=== PATIENT | female | born 1965 | race Caucasian/White ===

== ENCOUNTER 2024-06-15 13:51 | Emergency (ER) | payer BC, SELFPAY ==
[2024-06-15 13:52] VITALS: BP 146/98
--- NOTE | 2024-06-15 14:46 | ED.GENMED ---
History of Present Illness
General
Chief Complaint: Musculo-Skeletal Complaint
Time Seen by Provider: 06/15/24 14:25
History of Present Illness
History of Present Illness:
59-year-old female presents to the emergency department for evaluation of left shoulder pain after falling off her horse. She was wearing a helmet and reports only a mild blow to the head. Denies loss of consciousness or headaches at this time.
Has obvious bruising and swelling to the anterior superior aspect of the shoulder. Denies back pain or chest discomfort
Review of Systems
Review of Systems
Allergies reviewed?: Yes
All Other Systems: ROS reviewed and negative except as documented in HPI and ROS
Phy Exam
Physical Exam
Physical Exam:
GEN: Well appearing, NAD, WDWN
HEENT: Oral mucosa moist, no scleral icterus
Cardiac: Regular rate and rhythm, no murmurs
Lung: No respiratory distress, no tachypnea, lungs clear to auscultation bilaterally
MSK: Bruising and swelling to the anterior and superior aspect left shoulder overlying the distal clavicle, no glenohumeral dislocation
Skin: Good color, no pallor or jaundice, no rashes
Neuro: AO x3, moves all extremities freely
Psych: Calm, cooperative
Course
Orders/Labs/Results
Orders:
Orders
06/15/24 14:02
Shoulder, Left, Trauma CR [CR Shoulder, Trauma - Left] Urgent
Comment:
Reason For Exam: severe pain, pt fell off horse onto shoulder
06/15/24 14:48
Sling Left-Treatment ONCE
Acetaminophen [Tylenol] 1,000 mg PO NOW STA
Vital Signs
Initial and Last Documented VS:
Initial Vital Signs
Temp Pulse Resp BP Pulse Ox
98.2 F 96 16 146/98 98
06/15/24 13:52 06/15/24 13:52 06/15/24 13:52 06/15/24 13:52 06/15/24 13:52
Last Documented Vital Signs
Temp Pulse Resp BP Pulse Ox
98.2 F 96 16 146/98 98
06/15/24 13:52 06/15/24 13:52 06/15/24 13:52 06/15/24 13:52 06/15/24 13:52
MDM/Problems Addressed
MDM/Problems Addressed:
X-ray reveals a displaced distal clavicle fracture. No evidence for pneumothorax clinically or radiographically. Patient placed in sling, discussed supportive care and outpatient orthopedic follow-up
*Critical Care Note
Total Time (30-74mins, 75-104mins- exclusive of procedures): Not Applicable
ED Attending Note
-
Portions of this chart may have been created with voice recognition software.� Occasional wrong word or��sound alike� substitutions may have occurred due to the inherent limitations of voice recognition software.
Discharge Plan
Departure
Patient Disposition: Home (Routine Discharge)
Date of Disposition: 06/15/24
Time of Disposition: 14:46
Patient with high blood pressure during this ER visit?: No
Discharge Problem:
Closed fracture of left clavicle
Instructions: Clavicle fracture
Referrals:
Pauly Real I., DO [Active] -
Nanci Campoverde MD [Family Provider] -
Activity Restrictions/Additional Instructions:
Wear the sling at all times until orthopedic follow-up however please at least 1 open a total of the shoulder and elbow to stretch. Consider bending forward and pendulum swinging the left arm to reduce shoulder stiffness. Follow-up with
orthopedics tomorrow. Take Tylenol ibuprofen every 6-8 hours as needed for pain and ice the shoulder often
Interventions
Interventions:
*Risk Screen - Suicide Last Done: 06/15/24 14:01
*General Assessment Last Done: 06/15/24 14:01
*Neglect/Abuse Screening Last Done: 06/15/24 14:01
ED- Fall Risk Assessment Last Done: 06/15/24 15:32
*ED COVID-19 Vaccine History Last Done: 06/15/24 14:01
*Nursing Disposition Last Done: 06/15/24 15:32
ED-Musculoskeletal Assessment Last Done: 06/15/24 14:08
Discharge Date and Time
Discharge Date/Time: 06/15/24 15:33
Print Language: [place]
[2024-06-15] MEDS: TYLENOL 1000 MG PO (14:54)
== END 2024-06-15 15:33 | disposition home or self-care (01) ==
LOC: EMR 13:51
PROVIDERS: EMERGENCY PHYSICIAN Emergency Medicine; FAMILY PHYSICIAN Family Medicine
DX: S42.032A Displaced fracture of lateral end of left clavicle, initial encounter for closed fracture (principal); V80.010A Animal-rider injured by fall from or being thrown from horse in noncollision accident, initial encounter; Y93.52 Activity, horseback riding
CPT/HCPCS: 99283; 73030

== ENCOUNTER 2024-06-20 06:21 | Day surgery (SDC) | payer BC, SELFPAY ==
[2024-06-20] VITALS (9 sets, daily range): BP systolic 120–147; BP diastolic 58–88; BMI 18.3
[2024-06-20] MEDS: CELEBREX 200 MG PO (11:13)
[2024-06-20] MEDS: NORMOSOL-R 1000 IV (11:14)
[2024-06-20] MEDS: ZOFRAN 4 MG IV (14:15)
[2024-06-20] MEDS: DILAUDID 0.25 MG IV (14:39)
[2024-06-20] MEDS: TYLENOL 650 MG PO (15:42)
== END 2024-06-20 16:20 | disposition home or self-care (01) ==
LOC: SDS 06:21
PROVIDERS: ATTENDING PHYSICIAN Specialist
DX: S42.032A Displaced fracture of lateral end of left clavicle, initial encounter for closed fracture (principal); V80.010A Animal-rider injured by fall from or being thrown from horse in noncollision accident, initial encounter
CPT/HCPCS: 23515; 73000; 76000; C1713

== ENCOUNTER → 2024-12-13 10:10 | Outpatient (REF) | payer BC, SELFPAY | LOC: RAD 10:10 | PROVIDERS: FAMILY PHYSICIAN Family Medicine | DX: R10.31 Right lower quadrant pain (principal); K59.00 Constipation, unspecified; R93.5 Abnormal findings on diagnostic imaging of other abdominal regions, including retroperitoneum | CPT/HCPCS: 74176 ==

== ENCOUNTER → 2025-03-24 08:47 | Outpatient (REF) | payer BC, SELFPAY | LOC: WDC 08:47 | PROVIDERS: ATTENDING PHYSICIAN Family Medicine | DX: Z12.31 Encounter for screening mammogram for malignant neoplasm of breast (principal) | CPT/HCPCS: 77063; 77067 ==

== ENCOUNTER 2025-10-07 08:22 | Emergency (ER) | payer BC, SELFPAY ==
[2025-10-07 08:32] VITALS: BP 142/98
[2025-10-07 09:13] VITALS: BMI 18.6
--- NOTE | 2025-10-07 09:22 | ED.GENMED ---
History of Present Illness
General
Chief Complaint: Musculo-Skeletal Complaint
Source: patient
Exam Limitations: none
Time Seen by Provider: 10/07/25 08:57
Nursing documentation reviewed up to this point in time: agreed with
History of Present Illness
History of Present Illness:
60-year-old female was injured 4 days ago at her job a large horse moister into a wall knocked the wind out of her for a second or 2, she had pain over her sternum, seen at an urgent care had x-rays told they were negative then received a second
call that she had a sternal fracture and she had to come to the ER to be evaluated with a CAT scan she has no head or neck pain no blood thinners does have some pain with deep breath no nausea vomiting no abdominal pain
Past History
Past History
ED Past Medical History: None
Social History
Tobacco: Non-smoker
Alcohol: None
Drug: None
Personal:
Living: with family
Employment: Employed
Review of Systems
Review of Systems
All Other Systems: Not applicable
Respiratory: Reports trouble breathing
Cardiac: Reports chest pain (Chest wall pain)
Musculoskeletal: Reports no symptoms; Denies neck pain or back pain
Neurological: Reports no symptoms
Endocrine: Reports no symptoms
Phy Exam
Physical Exam
Physical Exam:
Physical Exam
General: no apparent distress, not acutely ill
Neck: No tongue bite no posterior neck
Heart: s1/s2 regular rate and rhythm, no murmur. equal radial pulses. Reproducible tenderness over the sternum
Lungs: no acute respiratory distress. clear bilaterally
Abdomen: Nontender
Neuro: alert and oriented. no focal neurological deficits
Skin: no rash
Psychiatric: well kept. interactive and cooperative
Extremities: no edema.
Course
Orders/Labs/Results
Orders:
Orders
10/07/25 09:14
CT Chest W/o Iv Contrast Urgent
Comment:
Reason For Exam: sternal fx, hit by horse, refused iv contrast
Vital Signs
Initial and Last Documented VS:
Initial Vital Signs
Temp Pulse Resp BP Pulse Ox
98.2 F 96 16 142/98 98
10/07/25 08:32 10/07/25 08:32 10/07/25 08:32 10/07/25 08:32 10/07/25 08:32
Last Documented Vital Signs
Temp Pulse Resp BP Pulse Ox
98.2 F 96 16 142/98 98
10/07/25 08:32 10/07/25 08:32 10/07/25 08:32 10/07/25 08:32 10/07/25 09:24
MDM/Problems Addressed
Differential Diagnosis Includes:
Sternal fracture rib fracture pneumothorax doubt significant vascular injury
MDM/Problems Addressed:
Chest trauma
*Radiology
Radiology exam reviewed: radiology read reviewed
*Pulse Oximetry
SaO2: 98
Oxygen Mode of Delivery: Room air
Patient hypoxic: no
*Critical Care Note
Total Time (30-74mins, 75-104mins- exclusive of procedures): Not Applicable
Update Note
Update Note:
Update patient 4 days after injury switched by horse, apparently has a sternal fracture on plain films from an urgent care sent here for CAT scan I did recommend CAT scan with IV contrast to look at her vascular structures she politely refused
states if they were injured she would already be in bad shape which is not an unreasonable thought she will allow us to do a CAT scan without contrast which would be a reasonable screening to look for fracture pneumothorax etc.
ED Attending Note
-
Portions of this chart may have been created with voice recognition software.� Occasional wrong word or��sound alike� substitutions may have occurred due to the inherent limitations of voice recognition software.
Discharge Plan
Departure
Prescriptions:
No Action
acetaminophen [Tylenol Extra Strength] 500 mg Tablet
1,000 mg PO Q6H PRN (Reason: pain)
ibuprofen [Advil] 200 mg Tablet
600 mg PO Q6H PRN (Reason: pain)
Patient Comments:
pt states she took 200 mg.
Referrals:
Nanci Campoverde MD [Family Provider]
Interventions
Interventions:
*Risk Screen - Suicide Last Done: 10/07/25 08:32
*General Assessment Last Done: 10/07/25 08:32
*Neglect/Abuse Screening Last Done: 10/07/25 08:32
*ED- Fall Risk Assessment Last Done: 10/07/25 09:13
*ED COVID-19 Vaccine History Last Done: 10/07/25 08:32
*ED Influenza Vaccine History Last Done: 10/07/25 08:32
ED-Musculoskeletal Assessment Last Done: 10/07/25 09:13
Discharge Date and Time
Print Language: NAMIB[place]
== END 2025-10-07 11:56 | disposition home or self-care (01) ==
LOC: EMR 08:22
PROVIDERS: EMERGENCY PHYSICIAN Emergency Medicine; FAMILY PHYSICIAN Family Medicine
DX: S22.20XA Unspecified fracture of sternum, initial encounter for closed fracture (principal); W55.12XA Struck by horse, initial encounter; Y99.0 Civilian activity done for income or pay
CPT/HCPCS: 99284; 71250